=== PATIENT | male | born 1995 | race Caucasian/White ===

== ENCOUNTER 2023-08-31 10:36 | Outpatient (CLI) | payer OTHER, SELFPAY ==
--- NOTE | ~2023-08-31 | US_ITS ---
Limited Abdominal Sonogram: Real-time sonographic imaging of the right upper quadrant was performed. Clinical History: Abnormal findings of blood chemistry Findings: The liver appears normal with no evidence of mass lesion or bile duct dilatation. Main por [place]tega vein demonstrates normal direction of flow. The gallbladder is well distended, evidence of mobile stone. 3 mm gallbladder wall polyp present. The common bile duct measures 3 mm. The visualized panc reas, aorta, and IVC are unremarkable. Impression: 3 mm gallbladder wall polyp. Reviewed, dictated and finalized at [facility] Impression: 3 mm gallbladder wall polyp.
== END 2023-08-31 10:37 | disposition home or self-care (01) ==
LOC: ANHIMG 10:40
PROVIDERS: PCP Family Medicine; Visit Provider Physician Assistant
DX: R79.89 Other specified abnormal findings of blood chemistry (principal); K82.4 Cholesterolosis of gallbladder
CPT/HCPCS: 76705

== ENCOUNTER 2023-09-21 10:45 | Outpatient (CLI) | payer OTHER, SELFPAY ==
--- NOTE | ~2023-09-21 | MR_ITS ---
MRI of the left knee Clinical history: Pain Technique: Coronal proton density and proton density-weighted images, sagittal proton-density and T2 fat-sat images, and axial proton-density fat-saturated images were acquired. Findings: Anterior and posterior cruciate ligaments are intact. Medial collateral ligament and the la teral collateral ligament, as are intact. Popliteus tendon is intact. Medial and lateral menisci are intact, without evidence of tear. Articular cartilage is well preserved throughout the knee. There is amorphous bone marrow edema at th e posterior medial tibial plateau, most compatible with bone contusion. No fracture evident. Extensor mechanism is intact. No significant joint effusion or Thurman's cyst. Impression: Findings most consistent with bone contusion at the posterior medial tibial plateau, presumably from a direct impaction injury. No fracture evident. No ligamentous injury or meniscal tear seen. Reviewed, dictated and finalized at [facility]. Impression: Findings most consistent with bone contusion at the posterior medial tibial mirella teau, presumably from a direct impaction injury. No fracture evident. No ligamentous injury or meniscal tear seen.
== END 2023-09-21 10:46 ==
LOC: MICIMG 10:46
PROVIDERS: PCP Nurse Practitioner Family; Visit Provider Nurse Practitioner Family
DX: M25.562 Pain in left knee (principal)
CPT/HCPCS: 73721